=== PATIENT | female | born 1945 | race Caucasian/White ===

== ENCOUNTER 2017-10-22 14:24 | Emergency (ER) | payer OTHER ==
[2017-10-22] MEDS ORDERED: TRANEXAMIC ACID 1,000 MG/10 ML VIAL ONE (14:54)
[2017-10-22] MEDS ORDERED: TRANEXAMIC ACID 1,000 MG in NS (SYRINGE) 50 ML IV ONE (14:57)
[2017-10-22] MEDS ORDERED: TRANEXAMIC ACID 1,000 MG/10 ML VIAL TP ONE (14:59)
[2017-10-22 15:02] LABS: PLATELET COUNT 203 10^3/uL (150-400)
--- NOTE | 2017-10-22 15:04 | EDPHY ---
H & P Stated Complaint: epistaxis on coumadin Time Seen by Provider: 10/22/17 14:55 HPI/ROS: CHIEF COMPLAINT: Epistaxis HISTORY OF PRESENT ILLNESS: The patient is an anticoagulated 72 y/o female with significant cardiac history and history of prior severe epistaxis arriving with her complaining of acute onset epistaxis this afternoon. She bent over to hot die picker a cat dish off the floor and suddenly developed a severe nose bleed that she has been unable to control with pressure. She denies any preceding trauma, sneeze, illness, or other provoking factor. She notes her most recent INR last week was 2.6. She started Bactrim on Monday for a UTI. REVIEW OF SYSTEMS: A 10 point review of systems was performed and is negative with the exception of the elements mentioned in the history of present illness. * Past medical history: 1. Prior severe epistaxis with cautery 2. Aortic dissection with endovascular repair 3. Marfan-like syndrome 4. Paroxysmal atrial fibrillation 5. Valvular heart disease status post aortic valve repair 6. CAD 7. 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 Depression 9. Small bowel obstruction Past surgical history: 1. Aortic valve repair 2. Endovascular aortic dissection repair 3. CABG x1 4. 5. Hernia repair 6. Lysis of adhesion for small bowel obstruction 7. Hysterectomy 8. Permanent pacemaker 9. Maze procedure 10. Phrenic nerve stimulator Family history: Multiple family member with Marfan-like syndrome and dissections. Social history: , at bedside. Prior medical records reviewed including admission 12/06/15 for palpitations. Adult Physical: General Appearance: Alert, sitting up in blood-soaked t-shirt actively bleeding from nares with clamp in place. HR 112.* Eyes: Pupils equal and round, no conjunctival injection, no discharge. ENT, Mouth: Mucous membranes are moist, no oropharyngeal erythema or edema. Neck: No lymphadenopathy, supple. Respiratory: Lungs are clear to auscultation; no wheezes, rales, or rhonchi. Cardiovascular: Regular rate and rhythm; no murmur, rub, or gallop. Gastrointestinal: Abdomen is soft and non tender, no masses or organomegaly. Skin: Warm and dry, no rashes, normal color. Back: Nontender to palpation over the thoracolumbar spine. Extremities: No lower extremity edema, no calf tenderness or swelling. Neurological: Alert and oriented. Moving all four extremities easily and equally. Psychiatric: Normal affect. - Personal History Current Tetanus/Diphtheria Vaccine: Yes Tetanus Vaccine Date: 2010 - Medical/Surgical History Hx Asthma: No Hx Chronic Respiratory Disease: No Hx Diabetes: No Hx Cardiac Disease: Yes Hx Renal Disease: No Hx Cirrhosis: No Hx Alcoholism: No Hx HIV/AIDS: No Hx Splenectomy or Spleen Trauma: No Other PMH: HX:Aortic root repair, L carotid / subclavian bypass with coil embolization of Left subclavian and Thoracic Endovascular abd. aortic anuerysm repair (01/2015) BLADDER INFECTIONS, PACE MAKER, AORTIC VALVE REPLACEMENT, HERNIA , AVD, BYPASS X1 AFIB, CARDIOVERSION, Maze procedure, ablation, LBBB, EF 35-40% , CM, CHF, HOME O2 AT NIGHT. - Social History Smoking Status: Former smoker Constitutional: Initial Vital Signs Temperature (C) 36.5 C 10/22/17 14:28 Heart Rate 112 H 10/22/17 14:28 Respiratory Rate 18 10/22/17 14:28 Blood Pressure 112/77 10/22/17 14:28 O2 Sat (%) 96 10/22/17 14:28 O2 Delivery Mode Room Air Allergies/Adverse Reactions: Penicillins Allergy (Intermediate, Verified 10/22/17 14:25) Rash Home Medications: Medication Instructions Recorded Herbals/Supplements -Info Only 1 ea PO DAILY 02/28/15 Famotidine [Pepcid] 20 mg PO DAILY PRN 05/09/15 Acetaminophen [Tylenol ES 500 mg 1,000 mg PO HS 12/07/15 (*)] Acetaminophen [Tylenol ES 500 mg 500 mg PO DAILY PRN 12/07/15 (*)] Bupropion HCl [Wellbutrin Xl] 300 mg PO DAILY 12/07/15 Carvedilol [Coreg (*)] 6.25 mg PO DAILY@1200 #0 tab 12/07/15 Carvedilol [Coreg] 12.5 mg PO BIDMEAL 12/07/15 Chlorthalidone [Chlorthalidone 25 25 mg PO .Q7-10 DAYS PRN 12/07/15 mg (*)] Digoxin [Lanoxin 0.125 mg] 0.125 mg PO DAILY 12/07/15 Ramipril [Altace 5mg (*)] 5 mg PO DAILY14 12/07/15 Warfarin Sodium [Coumadin 5MG (*)] 5 mg PO SUMOTUWETHSA@209912/07/15 Warfarin Sodium [Coumadin 5MG (*)] 7.5 mg PO FR@209912/07/15 Bactrim DS 10/22/17 Cephalexin [Keflex] 500 mg PO TID #10 cap 10/22/17 Medical Decision Making ED Course/Re-evaluation: Procedure: Epistaxis control. Indication: nosebleed not controlled by direct pressure. Risks, benefits, alternatives discussed with patient and consent obtained. The right anterior epistaxis was identified. The patient was treated with packing soaked in TXA. Following the procedure the patient was re-examined and the bleeding was well controlled. The patient tolerated the procedure well. The procedure was performed by myself, Dr. Lynne. 1545: Bleeding is controlled on reassessment. Pressure removed. Will monitor. 1640: Patient is now complaining of oozing down the back of her throat. Will attempt cautery. Procedure: Epistaxis control. Indication: nosebleed not controlled by direct pressure. Risks, benefits, alternatives discussed with patient and consent obtained. The anterior right epistaxis was identified. The patient was treated with cautery ( silver nitrate) which did not fully control the bleeding, this was followed by placement of anterior Rhinostat. Following the procedure the patient was re- examined and the bleeding was well controlled. The patient tolerated the procedure well. The procedure was performed by myself, Dr. Lynne. Labs reviewed. INR 2.68. Hemoglobin and hematocrit approximately 12 and 38. Patient will follow up with her ENT this week. Keflex given for antibiotic prophylaxis. Return precautions discussed. She is comfortable with this plan. Differential Diagnosis: I considered a differential diagnosis that includes do but was not limited to nasal trauma, infection, use of anticoagulants, and hypertension. - Data Points Laboratory Results: Laboratory Results 10/22/17 14:42 10/22/17 14:42 Medications Given: Discontinued Medications Cephalexin HCl (Keflex) 500 mg PO EDNOW ONE PRN Reason: Protocol Stop: 10/22/17 17:42 Last Admin: 10/22/17 17:44 Dose: 500 mg Silver Nitrate/Potassium Nitrate (Silver Nitrate Applicator) 2 each TP EDNOW ONE Stop: 10/22/17 16:49 Last Admin: 10/22/17 17:03 Dose: 2 each Tranexamic Acid (Cyklokapron) 500 mg TP EDNOW ONE Stop: 10/22/17 15:00 Last Admin: 10/22/17 15:10 Dose: 500 mg Departure - Departure Disposition: Home, Routine, Self-Care Clinical Impression: Epistaxis Condition: Good Instructions: Cephalexin (By mouth), Nosebleed (ED) Additional Instructions: 1. Call your ENT first thing tomorrow to arrange follow up within 2-3 days. 2. Keep packing in place until then. 3. Take Keflex as prescribed for infection prophylaxis. Be sure to complete the entire prescription. 4. Return to the ED for worsening of condition. Referrals: [facility] [Outside] - As per Instructions Prescriptions: Cephalexin [Keflex] 500 mg PO TID #10 cap Report Scribed for: Genet Lynne Report Scribed by: Veronica Tejada Date of Report: 10/22/17 Time of Report: 15:16 Physician Review and Approval Statement: 10/27/17 15:14 Portions of this note were transcribed by the certified medical asst. I, Dr. Genet Lynne, personally performed the history, physical exam, and medical decision- making; and confirmed the accuracy of the information in the transcribed note.
[2017-10-22 15:23] LABS: INR 2.68 (0.83-1.16); PROTIME(PATIENT) 28.4 SEC (12.0-15.0)
[2017-10-22] MEDS ORDERED: SILVER NITRATE APPLICATOR 1 APPL TP ONE ×2 (16:47→16:48)
[2017-10-22] MEDS ORDERED: CEPHALEXIN 500 MG CAP PO ONE (17:41)
[2017-10-22 17:52] VITALS: BP 109/68
== END 2017-10-22 17:57 | disposition home or self-care (01) ==
PROC: 2Y41X5Z Packing of Nasal Region using Packing Material (ICD-10-PCS; principal; 2017-10-22)
DX: R04.0 Epistaxis (principal); I25.810 Atherosclerosis of coronary artery bypass graft(s) without angina pectoris; I50.9 Heart failure, unspecified; Z79.01 Long term (current) use of anticoagulants; Z87.891 Personal history of nicotine dependence; Z95.0 Presence of cardiac pacemaker

== ENCOUNTER 2017-10-30 23:59 | Emergency (ER) | payer OTHER ==
--- NOTE | 2017-10-31 00:40 | EDPHY ---
H & P Stated Complaint: NOSE BLEED HX OF RUSS FEW DAYS AGO Time Seen by Provider: 10/31/17 00:15 HPI/ROS: HPI The patient presents with epistaxis which has been present for the last 1 hr. She is status post cauterization a few days ago and spontaneously started bleeding again tonight. She has used Afrin, nasal clamp however bleeding continues. She is on Coumadin. She is requesting rhino rocket be placed as this is what has helped her previously.. REVIEW OF SYSTEMS Constitutional: No fever, no chills. Eyes: No discharge. Musculoskeletal: No back pain. Skin: No rashes. Neurological: No headache. Soc Hx: Housed, here with her family PHYSICAL General Appearance: Alert, no distress Eyes: Pupils equal and round no pallor or injection ENT, Mouth: Mucous membranes moist, right naris is actively dripping blood, blood in oropharynx Respiratory: Breathing comfortably Neurological: A&O, moves all extremities Skin: Warm and dry, no rashes Musculoskeletal: Neck is supple non tender Extremities: symmetrical, full range of motion Psychiatric: Patient is oriented X 3, there is no agitation Source: Patient Exam Limitations: No limitations - Personal History Current Tetanus/Diphtheria Vaccine: Yes Current Tetanus Diphtheria and Acellular Pertussis (TDAP): Yes Tetanus Vaccine Date: 2010 - Medical/Surgical History Hx Asthma: No Hx Chronic Respiratory Disease: No Hx Diabetes: No Hx Cardiac Disease: Yes Hx Renal Disease: No Hx Cirrhosis: No Hx Alcoholism: No Hx HIV/AIDS: No Hx Splenectomy or Spleen Trauma: No Other PMH: HX:Aortic root repair, L carotid / subclavian bypass with coil embolization of Left subclavian and Thoracic Endovascular abd. aortic anuerysm repair (01/2015) BLADDER INFECTIONS, PACE MAKER, AORTIC VALVE REPLACEMENT, HERNIA , AVD, BYPASS X1 AFIB, CARDIOVERSION, Maze procedure, ablation, LBBB, EF 35-40% , CM, CHF, HOME O2 AT NIGHT. - Social History Smoking Status: Former smoker Constitutional: Initial Vital Signs Temperature (C) 36.7 C 10/31/17 00:00 Heart Rate 80 10/31/17 00:00 Respiratory Rate 18 10/31/17 00:00 Blood Pressure 139/80 H 10/31/17 00:00 O2 Sat (%) 95 10/31/17 00:00 O2 Delivery Mode Room Air Allergies/Adverse Reactions: Penicillins Allergy (Intermediate, Verified 10/31/17 00:02) Rash Home Medications: Medication Instructions Recorded Herbals/Supplements -Info Only 1 ea PO DAILY 02/28/15 Famotidine [Pepcid] 20 mg PO DAILY PRN 05/09/15 Acetaminophen [Tylenol ES 500 mg 1,000 mg PO HS 12/07/15 (*)] Acetaminophen [Tylenol ES 500 mg 500 mg PO DAILY PRN 12/07/15 (*)] Bupropion HCl [Wellbutrin Xl] 300 mg PO DAILY 12/07/15 Carvedilol [Coreg (*)] 6.25 mg PO DAILY@1200 #0 tab 12/07/15 Carvedilol [Coreg] 12.5 mg PO BIDMEAL 12/07/15 Chlorthalidone [Chlorthalidone 25 25 mg PO .Q7-10 DAYS PRN 12/07/15 mg (*)] Digoxin [Lanoxin 0.125 mg] 0.125 mg PO DAILY 12/07/15 Ramipril [Altace 5mg (*)] 5 mg PO DAILY14 12/07/15 Warfarin Sodium [Coumadin 5MG (*)] 5 mg PO SUMOTUWETHSA@2100 12/07/15 Warfarin Sodium [Coumadin 5MG (*)] 7.5 mg PO FR@2100 12/07/15 Bactrim DS 10/22/17 Cephalexin [Keflex] 500 mg PO TID #10 cap 10/22/17 Cephalexin [Keflex (*)] 500 mg PO Q6H #28 cap 10/31/17 Sotalol HCl [Sotylize] 5 mg PO 10/31/17 Medical Decision Making Procedures: NOSE BLEED Procedure: Epistaxis control. Indication: nosebleed not controlled by direct pressure. Risks, benefits, alternatives discussed with patient and consent obtained. The right nares was anesthetized with lidocaine with epinephrine. The anterior epistaxis was identified. The patient was treated with packing with 7.5 cm rhino rocket. Following the procedure the patient was re-examined and the bleeding was well controlled. The patient tolerated the procedure well. The procedure was performed by myself. Differential Diagnosis: This is a 72-year-old female who presents with recurrent epistaxis, currently on Coumadin. She had cauterization performed several days ago, however has began to bleed again. She tried nasal clamps and Afrin at home without relief. She is asking for rhino rocket to be placed. I feel this is reasonable given her Coumadin use. I have placed the rhino rocket, the patient's bleeding initially stopped, then she had a slow trickle of blood from her opposite naris. I offered 2nd rhino rocket to be placed on the contralateral side, however she would prefer not to do this. I instead inflated the rhino rocket with more air and this stops the bleeding somewhat though it has not completely ceased. She felt comfortable going home and will follow up with ENT in the morning. She will be discharged from the emergency department. Differential diagnosis includes posterior epistaxis, anterior epistaxis, bleeding from Kiesselbach's plexus Departure - Departure Disposition: Home, Routine, Self-Care Clinical Impression: Acute anterior epistaxis Condition: Good Instructions: Nosebleed (ED) Additional Instructions: Please return to the emergency department if your worse in any way. Otherwise please follow-up with your ENT in the next few days. Please take the antibiotic while you have the nasal packing in place. Referrals: Shannon Miranda MD [Primary Care Provider] - As per Instructions [facility] [Provider Group] - As per Instructions Prescriptions: Cephalexin [Keflex (*)] 500 mg PO Q6H #28 cap
[2017-10-31 01:43] VITALS: BP 142/81
== END 2017-10-31 01:43 | disposition home or self-care (01) ==
PROC: 2Y41X5Z Packing of Nasal Region using Packing Material (ICD-10-PCS; principal; 2017-10-30)
DX: R04.0 Epistaxis (principal); I50.9 Heart failure, unspecified; Z79.01 Long term (current) use of anticoagulants; Z87.891 Personal history of nicotine dependence

== ENCOUNTER → 2018-06-18 | Outpatient (CLI) | payer OTHER | LOC: FIMAGING 16:46 | PROVIDERS: ATTEND Family Medicine | DX: R10.13 Epigastric pain (principal); Z95.828 Presence of other vascular implants and grafts ==